=== PATIENT | female | born 1975 | race Caucasian/White ===

== ENCOUNTER 2016-04-06 22:44 | Emergency (ER) | payer OTHER ==
--- NOTE | ~2016-04-06 | ER ---
[facility] 41 Y [address] ROOM: [place] [address] LOCATION: [facility] ADMIT DATE: 04/06/2016 ER/Outpatient Report DISCHARGE DATE: 04/06/2016 FAMILY PHYSICIAN: Marielena Scott APRN ATTENDING PHYSICIAN: Gal Lubin TIME OF ARRIVAL: 2242 hours. TIME OF EVALUATION: 2242 hours. CHIEF COMPLAINT: Right ankle pain. HISTORY OF PRESENT ILLNESS: The patient is a 41-year-old female who presents to the emergency department today with a chief complaint of right ankle pain. She reports she fell on it last night and injured it because of that. She had sharp pain and it is worse with movement. Currently, 07/15 in severity. She has been able to ambulate though she did put in a Cam walking boot at the [facility] and was sent over here for further evaluation and treatment. PAST MEDICAL HISTORY: None. PAST SURGICAL HISTORY: Hysterectomy, tonsil, and adenoidectomy. SOCIAL HISTORY: The patient smokes half-pack per day. Drinks alcohol occasionally. Denies any illicit drug use. ALLERGIES: NO KNOWN DRUG ALLERGIES. MEDICATIONS: None. REVIEW OF SYSTEMS: All systems are reviewed by myself are negative with the exception of those discussed in the HPI and past medical history. PHYSICAL EXAMINATION: VITAL SIGNS: Weight 102.3 kg. Blood pressure 140/94, pulse 115, respiratory PAT[facility]GE: 41 Y [address] ROOM: [place] [address] LOCATION: [facility] ADMIT DATE: 04/06/2016 ER/Outpatient Report DISCHARGE DATE: 04/06/2016 FAMILY PHYSICIAN: Marielena Scott APRN ATTENDING PHYSICIAN: Gal Lubin rate 16, temperature 98.1, and oxygen saturation 96% on room air. GENERAL: The patient is a 41-year-old female, appears stated age, in no acute distress at this time. HEENT: Head: Normocephalic, atraumatic. Pupils are equal, round, and reactive to light and accommodation. Extraocular motions are intact. Nares are patent bilaterally. TMs are clear. Oropharynx is clear. NECK: Supple. There is no nuchal rigidity. CARDIOVASCULAR: Tachycardic. No murmurs, rubs, or gallops. LUNGS: Clear to auscultation bilaterally. No wheezes, rales, or rhonchi. ABDOMEN: Soft, nontender, and nondistended. No rebound, rigidity, or guarding. MUSCULOSKELETAL: The patient has a swelling to the lateral aspect of the right ankle. She has tenderness to palpation along the anterior talofibular ligament primarily. She is neurovascularly intact. There is 3/4 pulses, DP and PT, which are equal bilaterally. SKIN: Warm and dry. LABS AND X-RAYS: A 3-view x-ray of the right ankle and 2-view of the right foot are obtained. There is no acute fracture or dislocation noted. Further over-read by Radiology is pending at this time. IMPRESSION: 1. Acute right ankle sprain of the talofibular ligament. 2. Initial visit. EMERGENCY DEPARTMENT COURSE: The patient brought back to the examination room. Seen and evaluated by myself. X-rays are obtained as described above. The patient refuses any pain medicines at this time. I have discussed results of the x-ray with the patient. She already does have a Cam walking boot at this time. I have recommended that she continues to wear that as needed for pain. She is to follow up with primary care doctor in 3-5 days. She is to follow up with Orthopedic Surgery in 7-10 days if there is no improvement. I have discussed return to care instructions including worsening symptoms or any other concerns to return to the emergency department as soon as possible. The patient is agreeable with the plan and she is without further questions at this time. DISPOSITION: The patient is discharged home in good condition. GAL LUBIN DO PATIENT'S NAME: MARICARMEN BUCK [facility] AGE: 41 Y [address] ROOM: [place], [place] [address] LOCATION: [facility] ADMIT DATE: 04/06/2016 ER/Outpatient Report DISCHARGE DATE: 04/06/2016 FAMILY PHYSICIAN: Marielena Scott APRN ATTENDING PHYSICIAN: Gal Lubin/eduard /[id number] d: 04/07/166 t: 04/10/16 0604, OUTPATIENT REPORT
== END 2016-04-06 22:59 | disposition disaster alternative care site (69) ==
LOC: GACC 22:44
DX: S93.491A Sprain of other ligament of right ankle, initial encounter (principal); F17.210 Nicotine dependence, cigarettes, uncomplicated; Z90.89 Acquired absence of other organs; W17.2XXA Fall into hole, initial encounter